=== PATIENT | female | born 1980 ===

== ENCOUNTER 2017-10-14 18:31 | Inpatient (IN) | payer MEDICAID, OTHER ==
[2017-10-14 20:03] LABS: BASO % 0.3 % (0.0-2.0); EOS # 0.1 K/uL (0.0-0.7); EOS % 1.7 % (0.0-4.0); HEMOGLOBIN 11.2 g/dL (11.0-16.0); LYMPH # 2.3 K/uL (1.0-4.3); LYMPH % 29.4 % (20.0-40.0); MEAN CELL VOLUME 75.2 fL (81.0-99.0); MEAN CORPUSCULAR HEMOGLOBIN 23.9 pg (27.0-31.0); MEAN CORPUSCULAR HGB CONC 31.7 g/dL (33.0-37.0); MEAN PLATELET VOLUME 8.6 fL (7.2-11.7); MONO # 0.4 K/uL (0.0-0.8); MONO % 5.2 % (0.0-10.0); NEUT % 63.4 % (50.0-75.0); RBC 4.69 Mil/uL (3.80-5.20); RED CELL DISTRIBUTION WIDTH 17.2 % (11.5-14.5); WHITE BLOOD COUNT 7.9 K/uL (4.8-10.8)
[2017-10-14 20:05] LABS: SQUAMOUS EPITHIAL 1 /hpf (0-5); URINE BILIRUBIN NEGATIVE (NEGATIVE); URINE BLOOD 1+ (NEGATIVE); URINE CLARITY Clear (Clear); URINE COLOR Yellow (YELLOW); URINE GLUCOSE (UA) NORMAL (Normal); URINE LEUKOCYTE ESTERASE TRACE Leu/uL (Negative); URINE PROTEIN NEGATIVE (NEGATIVE); URINE UROBILINOGEN NORMAL mg/dL (0.2-1.0)
[2017-10-14 20:09] LABS: HCG,QUALITATIVE URINE NEGATIVE (NEGATIVE)
--- NOTE | 2017-10-14 20:11 | C.PDOC ---
History Of Present Illness 37 year old female presents to the ER as a prescreen for ETOH detox, last use was last night. Denies chest pain, palpitations, or SOB. Time Seen by Provider: 10/14/17 19:33 Chief Complaint (Nursing): Substance Abuse History Per: Patient History/Exam Limitations: no limitations Onset/Duration Of Symptoms: Days Current Symptoms Are (Timing): Still Present Suicide/Self Injury Attempted (Context): None Associated Symptoms: denies: Depression, Suicidal Thoughts Involuntary Hold By: None Recent travel outside of the [place]: No Past Medical History Reviewed: Historical Data, Nursing Documentation, Vital Signs Vital Signs: Last Vital Signs Temp 98.1 F 10/14/17 18:34 Pulse 98 H 10/14/17 18:34 Resp 18 10/14/17 18:34 BP 159/91 H 10/14/17 18:34 Pulse Ox 97 10/14/17 20:15 - Medical History PMH: Anemia, Asthma Family History: States: Unknown Family Hx - Social History Hx Alcohol Use: Yes Hx Substance Use: No - Immunization History Hx Tetanus Toxoid Vaccination: No Hx Influenza Vaccination: No Hx Pneumococcal Vaccination: No Review Of Systems Constitutional: Negative for: Fever, Chills Cardiovascular: Negative for: Chest Pain, Palpitations Respiratory: Negative for: Shortness of Breath Physical Exam - Physical Exam Appears: Non-toxic, No Acute Distress Skin: Normal Color, Warm, Dry Head: Atraumatic, Normacephalic Eye(s): bilateral: Normal Inspection Oral Mucosa: Moist Chest: Symmetrical, No Tenderness Cardiovascular: Rhythm Regular Respiratory: Normal Breath Sounds, No Rales, No Rhonchi, No Wheezing Gastrointestinal/Abdominal: Soft, No Tenderness Neurological/Psych: Oriented x3, Normal Speech ED Course And Treatment - Laboratory Results Result Diagrams: 10/14/17 19:48 10/14/17 19:48 O2 Sat by Pulse Oximetry: 97 (Room air) Pulse Ox Interpretation: Normal Progress Note: Blood work and urinalysis ordered. Patient pending crisis clearance. Pt is medically cleared. Pt was evaluated by crisis counselor Sushma and is admitted for detox under Dr Boogie for alcohol disorder. recommend to start pt on nicotine patch. Pt with alcohol level < 10, feeling "shaky". Librium PO ordered Disposition - Disposition Disposition: HOSPITALIZED Disposition Time: 21:12 Condition: STABLE Forms: OnetoOnetext (Puerto Rican) - Clinical Impression Clinical Impression: Alcohol use disorder, severe, dependence - PA / CLAM SHUCKER / Resident Statement MD/DO has reviewed & agrees with the documentation as recorded. - Scribe Statement The provider has reviewed the documentation as recorded by the Leticiaibzari Jerez All medical record entries made by the Leticiaibzari were at my direction and personally dictated by me. I have reviewed the chart and agree that the record accurately reflects my personal performance of the history, physical exam, medical decision making, and the department course for this patient. I have also personally directed, reviewed, and agree with the discharge instructions and disposition.
[2017-10-14 20:18] LABS: ALB/GLOB RATIO 1.1 (1.0-2.1); ALT/SGPT 47 U/L (9-52); AST/SGOT 33 U/L (14-36); BARBITURATES, UR NEGATIVE (NEGATIVE); BLOOD UREA NITROGEN 10 mg/dL (7-17); CALCIUM 8.8 mg/dl (8.6-10.4); GFR AFRICAN-AMERICAN > 60; GFR NON-AFRICAN AMERICAN > 60; OPIATES, UR NEGATIVE (NEGATIVE); PHENCYCLIDINE, UR NEGATIVE (NEGATIVE)
[2017-10-14 20:21] LABS: BENZODIAZEPINES, UR POSITIVE (NEGATIVE)
--- NOTE | 2017-10-14 22:57 | PCM.BM ---
<FrancieLuba - Last Filed: 10/14/17 22:56> Treatment Plan Problems - Problems identified on initial assessmt Potential for alcohol withdrawal Date Initiated: 10/14/17 Time Initiated: 22:56 Assessment reference: NA Status: Active Priority: 1 Treatment assets and liabiliti Patient Assests: cooperative, ADL independent, negotiates basic needs, cognitively intact Patient Liabilities: substance abuse (ETOH) - Milieu Protocol Maintain good personal hygiene: daily Encourage regular showers, daily Remind patient to perform daily oral care, daily Assist patient to perform ADL's Conduct patient checks and document Observation sheet: Q15 minutes Maintain personal safety: every shift Educate patient to report safety concerns to staff, every shift Monitor environment for contraband/sharps Medication safety: Monitor for expected outcome, potential side effects: every shift, Assess barriers to learning: every shift, Assess readiness for medication education: every shift <Sarah Hernandez - Last Filed: 10/15/17 12:30> Family Contact Family involvement: Famliy/SO not involved - Goals for Treatment Patient goals for treatment: Complete detox and transition to outpatient counseling. Discharge/Continuing Care - Education Needs Education Needs: Patient Medication, Patient Diagnosis/Disease Process, Patient Coping Skills, Patient Anger Management skills, Patient Placement options, Patient Community resources - Discharge Discharge Criteria: No longer exhibiting s/s of withdrawal, Reduction of target symptoms Discharge to:: Home, With Family - Treatment Team Participation Patient/Family/SO Statement: 10/15/17 12:34 "I wanna go to outpatient so I can keep working." Discussed with Family/SO: No Was Patient/Family/SO present at Treatment Team Meeting: Yes <Gisela Ramirez - Last Filed: 10/16/17 20:48> - Diagnosis (1) Alcohol use disorder, severe, dependence Status: Acute Interventions: 10/16/17 20:48 * Assess 7x/week regarding severity of withdrawal * Educate regarding risks, benefits, side effects and alternatives of medications * Use Motivational Interviewing for abstinence * Use CBT for relapse prevention * Medication management for withdrawal symptoms * Encourage medication assisted treatment *
[2017-10-15] MEDS: Albuterol HFA 90 mcg/actuation (8 g) INH PRN ×2 (08:17→18:58)
[2017-10-15] MEDS: Multiple Vitamins Tab PO SCH (10:30)
--- NOTE | 2017-10-15 11:40 | PCM.PSYCH ---
Initial Psychiatric Evaluation - Initial Psychiatric Evaluation Type of Admission: Voluntary Legal Status: Capacity Chief Complaint (in patient's own words): "I'm tired of being dependent." History of Present Illness and Precipitating Events: This is a 37 year old female who is single, works full-time and lives with her two children. Patient presented to [facility] for alcohol detox. Patient states she drinks at least 1 pint of whiskey and a 12 pack of "sparkling kunz" per day. Patient states she has been drinking for a long time but she became dependant the past year. Patient states she also uses 2-3 Xanax 2mg tablets per day; she is prescribed Xanax 2mg QID but she does not take all of it. Patient states she does not abuse her Xanax prescription. Patient denies any other illicit substances, including marijuana, PCP, heroin, or cocaine. Patient states she smokes cigarettes 1PPD. Patient states she has never been to detox, rehab or AA meetings before. Patient denies past psychiatric hospitalizations. She states she saw a psychiatrist for bereavement counseling after her mother but has been years since she has seen one. Patient states she was originally prescribed Xanax and Celexa 20mg by the psychiatrist and is now being prescribe it by her PMD. Patient states she has history of panic attacks and anxiety. Patient denies depression, suicidal ideation, or visual/auditory hallucinations. PMHx: anemia, asthma Psych History: Panic Attack, Anxiety Current Medications: Active Medications Generic Name Dose Route Start Last Admin Trade Name Freq PRN Reason Stop Dose Admin Albuterol 1 puff 10/14/17 21:25 10/15/17 08:17 Ventolin Hfa 90 Mcg/Actuation (8 G) INH 1 puff RQ4 PRN Administration Shortness of Breath Chlordiazepoxide 25 mg 10/15/17 07:15 10/15/17 08:19 Librium PO 25 mg Q4H PRN Administration Alcohol Withdrawal Chlordiazepoxide 50 mg 10/15/17 10:00 10/15/17 11:00 Librium PO 10/20/17 09:59 50 mg Q6H SERGE Administration Taper Clonidine HCl 0.1 mg 10/15/17 10:39 Catapres PO Q4H PRN Symptoms of alcohol withdrawl Folic Acid 1 mg 10/15/17 10:00 10/15/17 10:30 Folic Acid PO Not Given DAILY SERGE Gabapentin 400 mg 10/15/17 10:00 10/15/17 10:28 Neurontin PO 400 mg TID SERGE Administration Hydroxyzine HCl 25 mg 10/14/17 21:30 10/14/17 22:00 Atarax PO 25 mg Q6 PRN Administration Anxiety Ibuprofen 400 mg 10/15/17 07:18 Motrin Tab PO Q6 PRN Pain, moderate (4-7) Multivitamins 1 tab 10/15/17 10:00 10/15/17 10:30 Hexavitamin PO Not Given DAILY SERGE Nicotine 1 patch 10/15/17 10:00 10/15/17 10:29 Nicoderm Cq TD 1 patch DAILY SEREG Administration Sertraline HCl 50 mg 10/15/17 10:45 10/15/17 11:00 Zoloft PO 50 mg DAILY SERGE Administration Thiamine HCl 100 mg 10/15/17 10:00 10/15/17 10:30 Vitamin B1 Tab PO Not Given DAILY SERGE Trazodone HCl 100 mg 10/15/17 10:31 Desyrel PO HS PRN Insomnia Past Psychiatric History - Past Psychiatric History Previous Treatment History: None Pertinent Medical Hx (Current Medical&Sleep Prob, Allergies): Allergies Allergy/AdvReac Type Severity Reaction Status Date / Time azithromycin Allergy Severe RASH Verified 10/14/17 18:38 [From Zithromax Z-Wesly] Albuterol HFA [Ventolin HFA 90 mcg/actuation (8 g)] 2 puff IH [id number] 10/14/17 Alprazolam [Xanax] 2 mg PO QID 10/14/17 Citalopram Hydrobromide [Celexa] 20 mg PO DAILY 10/14/17 Mometasone Furoate [Asmanex Hfa] 1 puff IH TID 10/14/17 Review of Systems - Review of Systems All systems: reviewed and no additional remarkable complaints except - Psychiatric Psychiatric: Abnormal Sleep Pattern, Anxiety, Difficulty Concentrating. absent : Auditory Hallucinations, Depression, Hallucinations, Hopelessness, Suicidal Ideation, Visual Hallucinations Mental Status Examination - Personal Presentation Personal Presentation: Looks stated age - Affect Affect: Broad - Motor Activity Motor Activity: Calm - Reliability in Providing Information Reliability in Providing Information: Fair - Speech Speech: Organized - Mood Mood: Anxious - Formal Thought Process Formal Thought Process: No Impairment - Obsessions/Compulsions Obsessions: No Compulsions: No - Cognitive Functions Orientation: Person, Place, Situation, Time Sensorium: Alert Attention/Concentration: Attentive Abstract Thinking: [place] Estimate of Intelligence: Average Judgement: Intact, as evidence by: Insight regarding need for hospitalization Memory: Recent intact, as evidence by: Ability to recall events of the day - Risk Risk: Withdrawal, Diminished functioning - Strength & Assets Inventory Strength & Assets Inventory: Family support, Cooperative - Limitations Limitations: Other DSM 5 DX - DSM 5 DSM 5 Diagnosis: Alcohol Use Disorder, severe Sedative Hypnotic or Anxiolytic Use Disorder, severe Alcohol withdrawal Sedative hypnotic or anxiolytic withdrawal Generalized Anxiety Disorder r/o depression unspecified - Recommended/Plan of Treatment Treatment Recommendations and Plan of Treatment: Start Librium taper Start Zoloft 50mg for anxiety, dose to be increased Gabapentin for augmentation As needed medications All risks, benefits and alternatives of the meds discussed, and the pt agreed and understood. Attend groups and activities Supportive therapy and psychoeducation [place] for abstinence CBT for relapse prevention Encourage MAT Refer to rehab or IOP, and self-help groups Smoking cessation with [place] Nicotine patch if needed 34 min Projected ELOS: 6-7 days Prognosis: good w treatment - Smoking Cessation Smoking Cessation Initiated: Yes
[2017-10-16] MEDS: Albuterol HFA 90 mcg/actuation (8 g) INH PRN ×3 (08:20→19:21)
[2017-10-16] MEDS: Multiple Vitamins Tab PO SCH (09:55)
--- NOTE | 2017-10-16 13:25 | PCM.PYCHPN ---
Psychiatric Progress Note - Psychiatric Progress Note Patient seen today, length of contact: 16 min Patient Chief Complaint: "I'm not feeling well" Problems Identified/Issues Discussed: The pt is seen, chart reviewed, case discussed with staff. The pt is compliant with medications and reports no side-effects. Symptoms are improving but needs more time to stabilize. After care discussed, support and psychoeducation given. She then complained of too much anxiety - discussed Medication Change: Yes (detox changes daily) Medical Record Reviewed: Yes Mental Status Examination - Cognitive Function Orientation: Person, Place, Situation, Time Memory: Intact Attention: WNL Concentration: WNL Association: WNL Fund of Knowledge: WNL - Mood Mood: Anxious - Affect Affect: Broad - Speech Speech: Appropriate - Formal Thought Process Formal Thought Process: No Impairment - Suicidal Ideation Suicidal Ideation: No - Homicidal Ideation Homicidal Ideation: No Goal/Treatment Plan - Goal/Treatment Plan Need for Continued Stay: Discharge may exacerbated symptoms, Severe functional impairment Progress Toward Problem(s) and Goals/Treatment Plan: Librium taper Zoloft 50mg for anxiety, dose to be increased Inderal for anxiety Gabapentin for augmentation As needed medications All risks, benefits and alternatives of the meds discussed, and the pt agreed and understood. Attend groups and activities Supportive therapy and psychoeducation [place] for abstinence CBT for relapse prevention Encourage MAT Refer to rehab or IOP, and self-help groups Smoking cessation with [place] Nicotine patch if needed
[2017-10-17] MEDS: Multiple Vitamins Tab PO SCH (10:07)
[2017-10-17] MEDS: Albuterol HFA 90 mcg/actuation (8 g) INH PRN (17:07)
[2017-10-18] MEDS: Albuterol HFA 90 mcg/actuation (8 g) INH PRN ×2 (10:13→20:07)
[2017-10-18] MEDS: Multiple Vitamins Tab PO SCH (10:13)
--- NOTE | 2017-10-18 21:31 | PCM.PYCHPN ---
Psychiatric Progress Note - Psychiatric Progress Note Patient seen today, length of contact: 16 min Patient Chief Complaint: "I'm tired but better" Problems Identified/Issues Discussed: The pt is seen, chart reviewed, case discussed with staff. Support given, CBT and [place] used briefly No new symptoms reported, improving slowly and needs more time No SEs from medications, risks discussed. After care discussed Medication Change: Yes (detox changes daily) Medical Record Reviewed: Yes Mental Status Examination - Cognitive Function Orientation: Person, Place, Situation, Time Memory: Intact Attention: WNL Concentration: WNL Association: WNL Fund of Knowledge: WNL - Mood Mood: Anxious - Affect Affect: Broad - Speech Speech: Appropriate - Formal Thought Process Formal Thought Process: No Impairment - Suicidal Ideation Suicidal Ideation: No - Homicidal Ideation Homicidal Ideation: No Goal/Treatment Plan - Goal/Treatment Plan Need for Continued Stay: Discharge may exacerbated symptoms, Severe functional impairment Progress Toward Problem(s) and Goals/Treatment Plan: Librium taper Zoloft 50mg for anxiety, dose to be increased Inderal for anxiety Gabapentin for augmentation As needed medications All risks, benefits and alternatives of the meds discussed, and the pt agreed and understood. Attend groups and activities Supportive therapy and psychoeducation [place] for abstinence CBT for relapse prevention Encourage MAT Refer to rehab or IOP, and self-help groups Smoking cessation with [place] Nicotine patch if needed
--- NOTE | 2017-10-19 06:24 | PCM.PYCHPN ---
Psychiatric Progress Note - Psychiatric Progress Note Patient seen today, length of contact: 16 min Patient Chief Complaint: "Anxious a lot" Problems Identified/Issues Discussed: The pt is seen, chart reviewed, case discussed with staff. The pt is compliant with medications and reports no side-effects. Symptoms are improving but needs more time to stabilize. After care discussed, support and psychoeducation given. She then complained of too much anxiety - discussed Anxiety mgt discussed Medication Change: Yes (detox changes daily) Medical Record Reviewed: Yes Mental Status Examination - Cognitive Function Orientation: Person, Place, Situation, Time Memory: Intact Attention: WNL Concentration: WNL Association: WNL Fund of Knowledge: WNL - Mood Mood: Anxious - Affect Affect: Broad - Speech Speech: Appropriate - Formal Thought Process Formal Thought Process: No Impairment - Suicidal Ideation Suicidal Ideation: No - Homicidal Ideation Homicidal Ideation: No Goal/Treatment Plan - Goal/Treatment Plan Need for Continued Stay: Discharge may exacerbated symptoms, Severe functional impairment Progress Toward Problem(s) and Goals/Treatment Plan: Librium taper Zoloft 50mg for anxiety, dose to be increased Inderal for anxiety Gabapentin for augmentation As needed medications All risks, benefits and alternatives of the meds discussed, and the pt agreed and understood. Attend groups and activities Supportive therapy and psychoeducation [place] for abstinence CBT for relapse prevention Encourage MAT Refer to rehab or IOP, and self-help groups Smoking cessation with [place] Nicotine patch if needed
[2017-10-19] MEDS: Multiple Vitamins Tab PO SCH (09:58)
--- NOTE | 2017-10-19 14:24 | PCM.PYCHPN ---
Psychiatric Progress Note - Psychiatric Progress Note Patient seen today, length of contact: 15 min Patient Chief Complaint: "I'm feeling better today, but still anxious" Problems Identified/Issues Discussed: The pt is seen, chart reviewed, case discussed with staff. The pt is compliant with medications and reports no side-effects. Symptoms are improving but needs more time to stabilize. After care discussed, support and psychoeducation given. Less anxious Wants to return to work either this week or next. Medication Change: Yes (detox changes daily) Medical Record Reviewed: Yes Mental Status Examination - Cognitive Function Orientation: Person, Place, Situation, Time Memory: Intact Attention: WNL Concentration: WNL Association: WNL Fund of Knowledge: WNL - Mood Mood: Anxious - Affect Affect: Broad - Speech Speech: Appropriate - Formal Thought Process Formal Thought Process: No Impairment - Suicidal Ideation Suicidal Ideation: No - Homicidal Ideation Homicidal Ideation: No Goal/Treatment Plan - Goal/Treatment Plan Need for Continued Stay: Discharge may exacerbated symptoms, Severe functional impairment Progress Toward Problem(s) and Goals/Treatment Plan: Librium taper Zoloft 50mg for anxiety, dose to be increased Inderal for anxiety Gabapentin for augmentation As needed medications All risks, benefits and alternatives of the meds discussed, and the pt agreed and understood. Attend groups and activities Supportive therapy and psychoeducation [place] for abstinence CBT for relapse prevention Encourage MAT Refer to rehab or IOP, and self-help groups Smoking cessation with [place] Nicotine patch if needed
[2017-10-19] MEDS: Albuterol HFA 90 mcg/actuation (8 g) INH PRN (18:13)
--- NOTE | 2017-10-20 08:55 | PCM.PYCHDC ---
Mental Status Examination - Mental Status Examination Orientation: Person, Place, Situation, Time Memory: Intact Mood: Anxious Speech: Appropriate Attention: WNL Concentration: WNL Association: WNL Fund of Knowledge: WNL Formal Thought Process: No Impairment Suicidal Ideation: No Current Homicidal Ideation?: No Discharge Summary - Discharge Note Reason for Hospitalization: ETOH detox Consultations:: List each consultation separately and include: 1. Reason for request. 2. Findings. 3. Follow-up Summary of Hospital Course include:: 1. Description of specific treatment plan utilized for patients during their course of treatmen. 2. Summarize the time- course for resolution of acute symptoms and/or regressed behaviors. 3. Describe issues identified and worked on during hospitalization. 4. Describe medication utilized. 5. Describe medical problems identified and treated. 6. Reassessment of suicide risk Summary of Hospital Course: On admission: This is a 37 year old female who is single, works full-time and lives with her two children. Patient presented to [facility] ER for alcohol detox. Patient states she drinks at least 1 pint of whiskey and a 12 pack of "sparkling kunz" per day. Patient states she has been drinking for a long time but she became dependant the past year. Patient states she also uses 2-3 Xanax 2mg tablets per day; she is prescribed Xanax 2mg QID but she does not take all of it. Patient states she does not abuse her Xanax prescription. Patient denies any other illicit substances, including marijuana, PCP, heroin, or cocaine. Patient states she smokes cigarettes 1PPD. Patient states she has never been to detox, rehab or AA meetings before. Patient denies past psychiatric hospitalizations. She states she saw a psychiatrist for bereavement counseling after her mother but has been years since she has seen one. Patient states she was originally prescribed Xanax and Celexa 20mg by the psychiatrist and is now being prescribe it by her PMD. Patient states she has history of panic attacks and anxiety. Patient denies depression, suicidal ideation, or visual/auditory hallucinations. PMHx: anemia, asthma Psych History: Panic Attack, Anxiety Hospital course: The pt was admitted and started on treatment with psychotherapy, support, psychoeducation and medications. [place] and CBT used. The pt attended groups and activities, as well as milieu therapy. All the risks and benefits of medications are discussed and the patient understood and agreed. The pt improved with the treatments provided. After care discussed with the patient. She will go to [facility] and time off given due to anxiety. Inderal 10 mg prn #60 added to rx. - Final Diagnosis (DSM 5) Condition upon Discharge: IMPROVED DSM 5: Alcohol Use Disorder, severe Sedative Hypnotic or Anxiolytic Use Disorder, severe Alcohol withdrawal Sedative hypnotic or anxiolytic withdrawal Generalized Anxiety Disorder r/o depression unspecified Disposition: HOME/ ROUTINE Follow-up Treatment Plan: Continue below medications after discharge. Plus prn inderal 10 mg #60 Time off until 10/26/17 Follow after care plan as discussed. Use relapse prevention skills Return to ER or call 911 if suicidal, homicidal or symptoms relapse. Stay away from stress, alcohol and drugs. See primary doctor regularly and get labs. Prescriptions/Medication Reconciliation: Gabapentin [Neurontin] 400 mg PO TID #90 cap QUEtiapine [Seroquel] 100 mg PO HS #30 tab Sertraline [Zoloft] 100 mg PO DAILY #30 tab traZODone [Desyrel] 100 mg PO HS PRN #30 tab PRN Reason: Insomnia - Smoking Cessation Smoking Cessation Medication prescribed: No - Antipsychotic Medications Pt discharged on 2 or more routine antipsychotic medications: No
[2017-10-20] MEDS: Multiple Vitamins Tab PO SCH (09:16)
[2017-10-20 09:26] VITALS: O2SAT 95
[2017-10-20 13:19] VITALS: BP 102/64; PULSE 75; RESP 20; TEMP 98.7
== END 2017-10-20 13:00 | disposition home or self-care (01) | DRG 751 ==
LOC: C.ER 18:31 → C.7D 20:48
PROC: HZ2ZZZZ Detoxification Services for Substance Abuse Treatment (ICD-10-PCS; principal; 2017-10-14)
PROC: HZ59ZZZ Individual Psychotherapy for Substance Abuse Treatment, Supportive (ICD-10-PCS; 2017-10-14)
PROC: HZ46ZZZ Group Counseling for Substance Abuse Treatment, Psychoeducation (ICD-10-PCS; 2017-10-14)
PROC: GZ3ZZZZ Medication Management (ICD-10-PCS; 2017-10-14)
PROC: HZ90ZZZ Pharmacotherapy for Substance Abuse Treatment, Nicotine Replacement (ICD-10-PCS; 2017-10-14)
DX: F10.230 Alcohol dependence with withdrawal, uncomplicated (principal); F13.239 Sedative, hypnotic or anxiolytic dependence with withdrawal, unspecified; F41.1 Generalized anxiety disorder; F17.210 Nicotine dependence, cigarettes, uncomplicated; F41.0 Panic disorder [episodic paroxysmal anxiety]; J45.909 Unspecified asthma, uncomplicated; Z79.899 Other long term (current) drug therapy

== ENCOUNTER 2018-07-06 23:54 | Inpatient (IN) | payer MEDICAID, OTHER ==
--- NOTE | 2018-07-07 00:30 | C.PDOC ---
History Of Present Illness 38 year old female presents to the ED requesting detox for alcohol abuse. 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 Patient denies SI/HI, hallucinations, injury, fall, trauma. Time Seen by Provider: 07/07/18 00:29 Chief Complaint (Nursing): Substance Abuse History Per: Patient History/Exam Limitations: intoxication Onset/Duration Of Symptoms: Hrs Current Symptoms Are (Timing): Still Present Suicide/Self Injury Attempted (Context): None Modifying Factor(s): Alcohol Associated Symptoms: denies: Depression, Suicidal Thoughts, Suicidal Plan Recent travel outside of the [place]: No Additional History Per: Patient Past Medical History Reviewed: Historical Data, Nursing Documentation, Vital Signs Vital Signs: Last Vital Signs Temp 98.1 F 07/07/18 00:21 Pulse 117 H 07/07/18 00:21 Resp 20 07/07/18 00:21 BP 116/78 07/07/18 00:21 Pulse Ox 96 07/07/18 00:21 - Medical History PMH: Anemia, Anxiety, Asthma, HTN Denies: Diabetes, Hepatitis, HIV, Seizures, Sexually Transmitted Disease Surgical History: No Surg Hx - [facility] DETOXIFICATION SERVICES FOR SUBSTANCE ABUSE TREATMENT (10/14/17) GROUP PHOTONICS ENGINEERING TECHNOLOGIST FOR SUBSTANCE ABUSE TREATMENT, PSYCHOEDUCATION (10/14/17) INDIV PSYCHOTHERAPY FOR SUBSTANCE ABUSE TREATMENT, SUPPORT (10/14/17) MEDICATION MANAGEMENT (10/14/17) PHARMACOTHERAPY FOR SUBSTANCE ABUSE, NICOTINE REPLACE (10/14/17) Family History: States: Unknown Family Hx - Social History Hx Alcohol Use: Yes Hx Substance Use: No - Immunization History Hx Tetanus Toxoid Vaccination: No Hx Influenza Vaccination: No Hx Pneumococcal Vaccination: No Review Of Systems Constitutional: Negative for: Fever, Chills Cardiovascular: Negative for: Chest Pain Respiratory: Negative for: Shortness of Breath Gastrointestinal: Negative for: Nausea, Vomiting, Abdominal Pain Skin: Negative for: Rash Psych: Positive for: Anxiety. Negative for: Depression, Suicidal ideation Physical Exam - Physical Exam Appears: Non-toxic, No Acute Distress Skin: Warm, Dry Head: Normacephalic Eye(s): bilateral: Normal Inspection Neck: Supple Chest: Symmetrical Cardiovascular: Rhythm Regular Respiratory: No Rales, No Rhonchi, No Wheezing Gastrointestinal/Abdominal: Soft, No Tenderness, No Guarding, No Rebound Back: Normal Inspection Extremity: Normal ROM Extremity: Bilateral: Atraumatic, Normal Color And Temperature, Normal ROM Neurological/Psych: Oriented x3, Normal Speech, Normal Cognition Gait: Steady ED Course And Treatment - Laboratory Results Result Diagrams: 07/07/18 00:40 07/07/18 00:40 O2 Sat by Pulse Oximetry: 96 (ON RA) Pulse Ox Interpretation: Normal Disposition Discussed With Dr.: Bert Boogie Comment: accepted the pt on his service and took over the care at 1:57AM Doctor Will See Patient In The: Hospital Counseled Patient/Family Regarding: Studies Performed, Diagnosis - Disposition Disposition: HOSPITALIZED Disposition Time: 00:29 Condition: FAIR Forms: [facility] ([place]) - POA Present On Arrival: Poor Glycemic Control - Clinical Impression Clinical Impression: Alcohol use disorder, severe, dependence - Scribe Statement The provider has reviewed the documentation as recorded by the Scribe Cuate Watkins All medical record entries made by the Scribe were at my direction and personally dictated by me. I have reviewed the chart and agree that the record accurately reflects my personal performance of the history, physical exam, medical decision making, and the department course for this patient. I have also personally directed, reviewed, and agree with the discharge instructions and disposition. Decision To Admit - Pt Status Changed To: Hospital Disposition Of: Inpatient - Admit Certification Admit to Inpatient:: After my assessment, the patient will require hospitalization for at least two midnights. This is because of the severity of symptoms shown, intensity of services needed, and/or the medical risk in this patient being treated as an outpatient. - InPatient: Physician Admission Certification: I certify that this patient requires 2 or more midnights of care for the following reason:: After my assessment, the patient will require hospitalization for at least two midnights. This is because of the severity of symptoms shown, intensity of services needed, and/or the medical risk in this patient being treated as an outpatient. - . Bed Request Type: Detox Admitting Physician: Bert Boogie Patient Diagnosis: Alcohol use disorder, severe, dependence
[2018-07-07 00:43] LABS: BASO # 0.1 K/uL (0.0-0.2); BASO % 0.6 % (0.0-2.0); EOS # 0.2 K/uL (0.0-0.7); EOS % 2.3 % (0.0-4.0); HEMOGLOBIN 14.5 g/dL (11.0-16.0); LYMPH % 34.8 % (20.0-40.0); MEAN CELL VOLUME 86.3 fL (81.0-99.0); MEAN CORPUSCULAR HEMOGLOBIN 28.7 pg (27.0-31.0); MEAN CORPUSCULAR HGB CONC 33.3 g/dL (33.0-37.0); MEAN PLATELET VOLUME 8.3 fL (7.2-11.7); MONO # 0.6 K/uL (0.0-0.8); MONO % 6.6 % (0.0-10.0); NEUT # 4.8 K/uL (1.8-7.0); NEUT % 55.7 % (50.0-75.0); RBC 5.06 Mil/uL (3.80-5.20); RED CELL DISTRIBUTION WIDTH 14.5 % (11.5-14.5); WHITE BLOOD COUNT 8.7 K/uL (4.8-10.8)
[2018-07-07 01:00] LABS: ALB/GLOB RATIO 1.3 (1.0-2.1); ALBUMIN 4.7 g/dL (3.5-5.0); ALT/SGPT 69 U/L (9-52); AST/SGOT 57 U/L (14-36); BLOOD UREA NITROGEN 12 mg/dL (7-17); CALCIUM 8.8 mg/dl (8.6-10.4); GFR NON-AFRICAN AMERICAN > 60
[2018-07-07 01:06] LABS: SQUAMOUS EPITHIAL 1 /hpf (0-5); URINE BACTERIA RARE (<OCC); URINE BILIRUBIN NEGATIVE (NEGATIVE); URINE CLARITY Clear (Clear); URINE COLOR Yellow (YELLOW); URINE GLUCOSE (UA) NORMAL (Normal); URINE LEUKOCYTE ESTERASE 1+ Leu/uL (Negative); URINE PROTEIN NEGATIVE (NEGATIVE); URINE UROBILINOGEN NORMAL mg/dL (0.2-1.0)
[2018-07-07 01:21] LABS: BARBITURATES, UR NEGATIVE (NEGATIVE); OPIATES, UR NEGATIVE (NEGATIVE); PHENCYCLIDINE, UR NEGATIVE (NEGATIVE)
[2018-07-07 01:27] LABS: BENZODIAZEPINES, UR POSITIVE (NEGATIVE)
[2018-07-07 01:59] LABS: URINE BLOOD TRACE (NEGATIVE)
[2018-07-07 03:36] VITALS: RESP 18
--- NOTE | 2018-07-07 03:40 | PCM.BM ---
<Reagan De Los Santos - Last Filed: 07/07/18 03:37> Treatment Plan Problems - Problems identified on initial assessmt anxiety r/t substance use Date Initiated: 07/07/18 Time Initiated: 03:37 Assessment reference: NA Status: Active Defensive coping Date Initiated: 07/07/18 Time Initiated: 03:38 Assessment reference: NA Status: Active Knowlegde Deficit: Alcohol use Date Initiated: 07/07/18 Time Initiated: 03:39 Assessment reference: NA Status: Active Treatment assets and liabiliti Patient Assests: adapts well, cooperative, educated, ADL independent, physically healthy, good support system, negotiates basic needs, financial stabiity, cognitively intact Patient Liabilities: substance abuse - Milieu Protocol Maintain good personal hygiene: daily Encourage regular showers, daily Remind patient to perform daily oral care, daily Assist patient to perform ADL's Maintain personal safety: every shift Educate patient to report safety concerns to staff, every shift Monitor environment for contraband/sharps Medication safety: Monitor for expected outcome, potential side effects: every shift, Assess barriers to learning: every shift, Assess readiness for medication education: every shift <Gisela Ramirez - Last Filed: 07/08/18 08:58> - Diagnosis (1) Alcohol use disorder, severe, dependence Status: Acute Interventions: 07/07/18 08:58 * Assess 7x/week regarding severity of withdrawal * Educate regarding risks, benefits, side effects and alternatives of medications * Use Motivational Interviewing for abstinence * Use CBT for relapse prevention * Medication management for withdrawal symptoms * Encourage medication assisted treatment *
--- NOTE | 2018-07-07 08:36 | PCM.PSYCH ---
Initial Psychiatric Evaluation - Initial Psychiatric Evaluation Type of Admission: Voluntary Legal Status: Capacity Chief Complaint (in patient's own words): I need to stop drinking. 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 Per previous record, patient was living with her children. Patient states she has been drinking for the last 20+ years; however, the past 2 years she has increased her consumption and now drinks appox 2 pints of gilles daily along with 6 beers. Patient attests her last drink was last night. Patient states she just began drinking randomly in increased amounts for the past 2 years. Patient denies any life stressors. Pt has had one prior detox stay here in September 2017. She denies any rehab program following detox; however, she states she attended counseling and AA meetings for a few months after, but stopped attending a couple months prior. Patient admits to smoking 1/2 pack a day. Patient admits to a psychiatric history of anxiety. She takes xanax 2mg TID prescribed by her PCP Dr. Alberto from [facility] in [place]. Patient presently is stating she has chills and does not feel well. Patient denies hallucinations, suicidal/ homicidal thoughts. Pt does states she has loss of interest, but reports good appetites and no feelings of guilt. PMHx: HTN, Asthma, anemia Meds: inhaler, lisinopril (not currently taking due to persistent cough), iron supplements Allergies: azzithromycin PSHx: Knee, ankle, arm surgery Current Medications: Active Medications Generic Name Dose Route Start Last Admin Trade Name Freq PRN Reason Stop Dose Admin Clonidine HCl 0.1 mg 07/07/18 02:28 07/07/18 03:01 Catapres PO 0.1 mg Q6 PRN Administration Symptoms of alcohol withdrawl Dicyclomine HCl 10 mg 07/07/18 02:29 Bentyl PO Q6 PRN Muscle spasm Hydroxyzine HCl 25 mg 07/07/18 02:26 07/07/18 03:01 Atarax PO 25 mg Q6 PRN Administration Anxiety Ibuprofen 600 mg 07/07/18 02:28 Motrin Tab PO Q6 PRN Pain, moderate (4-7) Ondansetron HCl 4 mg 01/09/19 02:29 Zofran Tab PO Q6 PRN Nausea/Vomiting Trazodone HCl 50 mg 07/07/18 02:27 07/07/18 03:01 Desyrel PO 50 mg HS PRN Administration Insomnia Past Psychiatric History - Past Psychiatric History Previous Treatment History: Inpatient Prior [facility] Date: 10/14/16 Pertinent Medical Hx (Current Medical&Sleep Prob, Allergies): Allergies Allergy/AdvReac Type Severity Reaction Status Date / Time azithromycin Allergy Severe RASH Verified 07/07/18 00:26 [From Zithromax Z-Wesly] Albuterol HFA [Ventolin HFA 90 mcg/actuation (8 g)] 2 puff IH [id number] 10/14/17 Mometasone Furoate [Asmanex Hfa] 1 puff IH TID 10/14/17 Sertraline [Zoloft] 100 mg PO DAILY #30 tab 10/20/17 traZODone [Desyrel] 100 mg PO HS PRN #30 tab 10/20/17 Alprazolam 2 mg PO QID PRN 07/07/18 Aspirin [Ecotrin] 81 mg PO DAILY 07/07/18 Sertraline [Zoloft] 100 mg PO BID 07/07/18 Review of Systems - Constitutional Constitutional: Chills, Sweats. absent: Fever, Weakness, Malaise - Psychiatric Psychiatric: absent: Auditory Hallucinations, Hallucinations, Irritability, Mood Swings, Paranoia, Suicidal Ideation Mental Status Examination - Personal Presentation Personal Presentation: Looks older than stated age - Affect Affect: Blunted - Reliability in Providing Information Reliability in Providing Information: Good - Speech Speech: Organized - Mood Mood: Anxious - Formal Thought Process Formal Thought Process: No Impairment - Obsessions/Compulsions Obsessions: None Compulsions: None - Cognitive Functions Orientation: Person, Place, Situation, Time Sensorium: Alert - Strength & Assets Inventory Strength & Assets Inventory: Employment status - Limitations Limitations: Living alone DSM 5 DX - DSM 5 DSM 5 Diagnosis: Alcohol use disorder, severe Tobacco use disorder - Recommended/Plan of Treatment Treatment Recommendations and Plan of Treatment: Taper with Librium Gabapentin for augmentation if needed As needed medications All risks, benefits and alternatives of the meds discussed, and the pt agreed and understood. Attend groups and activities Supportive therapy and psychoeducation AR for abstinence CBT for relapse prevention Encourage MAT Refer to rehab or IOP, and self-help groups Teach healthy lifestyle methods, i.e. diet, exercise, meditation Smoking cessation with AR Nicotine patch if needed Projected ELOS: 35
[2018-07-07] MEDS ORDERED: Albuterol HFA 90 mcg/actuation (8 g) INH PRN (08:47)
--- NOTE | 2018-07-07 09:35 | PCM.PYCHDC ---
Mental Status Examination - Mental Status Examination Orientation: Person Discharge Summary - Discharge Note Laboratory Data: Abnormal Lab Results 07/07/18 07/07/18 07/07/18 00:40 00:40 00:57 WBC 8.7 RBC 5.06 Hgb 14.5 D Hct 43.7 MCV 86.3 D MCH 28.7 MCHC 33.3 RDW 14.5 Plt Count 211 MPV 8.3 Neut % (Auto) 55.7 Lymph % (Auto) 34.8 Cross % (Auto) 6.6 Eos % (Auto) 2.3 Baso % (Auto) 0.6 Neut # (Auto) 4.8 Lymph # (Auto) 3.0 Cross # (Auto) 0.6 Eos # (Auto) 0.2 Baso # (Auto) 0.1 Sodium 142 Potassium 3.8 Chloride 108 H Carbon Dioxide 23 Anion Gap 15 BUN 12 Creatinine 0.8 Est GFR ( Amer) > 60 Est GFR (Non-Af Amer) > 60 Random Glucose 111 H D Calcium 8.8 Phosphorus 3.7 Magnesium 2.1 Total Bilirubin 0.4 AST 57 H D ALT 69 H D Alkaline Phosphatase 117 Total Protein 8.4 H Albumin 4.7 Globulin 3.7 Albumin/Globulin Ratio 1.3 Urine Color Yellow Urine Clarity Clear Urine pH 5.0 Ur Specific [place] 1.009 Urine Protein Negative Urine Glucose (UA) Normal Urine Ketones Negative Urine Blood Trace H Urine Nitrate Negative Urine Bilirubin Negative Urine Urobilinogen Normal Ur Leukocyte Esterase 1+ H Urine WBC (Auto) < 1 Urine RBC (Auto) 1 Ur Squamous Epith Cells 1 Urine Bacteria Rare Urine HCG, Qual Urine Opiates Screen Urine Methadone Screen Ur Barbiturates Screen Ur Phencyclidine Scrn Ur Amphetamines Screen U Benzodiazepines Scrn U Oth Cocaine Metabols U Cannabinoids Screen Alcohol, Quantitative 199 H 07/07/18 07/07/18 00:57 00:57 WBC RBC Hgb Hct MCV MCH MCHC RDW Plt Count MPV Neut % (Auto) Lymph % (Auto) Cross % (Auto) Eos % (Auto) Baso % (Auto) Neut # (Auto) Lymph # (Auto) Cross # (Auto) Eos # (Auto) Baso # (Auto) Sodium Potassium Chloride Carbon Dioxide Anion Gap BUN Creatinine Est GFR ( Amer) Est GFR (Non-Af Amer) Random Glucose Calcium Phosphorus Magnesium Total Bilirubin AST ALT Alkaline Phosphatase Total Protein Albumin Globulin Albumin/Globulin Ratio Urine Color Urine Clarity Urine pH Ur Specific [place] Urine Protein Urine Glucose (UA) Urine Ketones Urine Blood Urine Nitrate Urine Bilirubin Urine Urobilinogen Ur Leukocyte Esterase Urine WBC (Auto) Urine RBC (Auto) Ur Squamous Epith Cells Urine Bacteria Urine HCG, Qual Negative Urine Opiates Screen Negative Urine Methadone Screen Negative Ur Barbiturates Screen Negative Ur Phencyclidine Scrn Negative Ur Amphetamines Screen Negative U Benzodiazepines Scrn Positive U Oth Cocaine Metabols Negative U Cannabinoids Screen Negative Alcohol, Quantitative Consultations:: List each consultation separately and include: 1. Reason for request. 2. Findings. 3. Follow-up Summary of Hospital Course include:: 1. Description of specific treatment plan utilized for patients during their course of treatmen. 2. Summarize the time- course for resolution of acute symptoms and/or regressed behaviors. 3. Describe issues identified and worked on during hospitalization. 4. Describe medication utilized. 5. Describe medical problems identified and treated. 6. Reassessment of suicide risk - Final Diagnosis (DSM 5) Condition upon Discharge: FAIR Disposition: AGAINST MEDICAL ADVICE
[2018-07-07] MEDS ORDERED: Multiple Vitamins Tab PO SCH (10:00)
[2018-07-07 10:52] VITALS: BP 130/83; PULSE 88; TEMP 97.9; O2SAT 96
== END 2018-07-07 10:30 | disposition left against medical advice (07) | DRG 894 ==
LOC: C.ER 23:54 → C.7D 07-07 01:56
PROC: HZ2ZZZZ Detoxification Services for Substance Abuse Treatment (ICD-10-PCS; principal; 2018-07-07)
PROC: HZ56ZZZ Individual Psychotherapy for Substance Abuse Treatment, Psychoeducation (ICD-10-PCS; 2018-07-07)
PROC: HZ59ZZZ Individual Psychotherapy for Substance Abuse Treatment, Supportive (ICD-10-PCS; 2018-07-07)
PROC: HZ80ZZZ Medication Management for Substance Abuse Treatment, Nicotine Replacement (ICD-10-PCS; 2018-07-07)
DX: F10.20 Alcohol dependence, uncomplicated (principal); F17.210 Nicotine dependence, cigarettes, uncomplicated; I10 Essential (primary) hypertension; J45.909 Unspecified asthma, uncomplicated; D64.9 Anemia, unspecified